=== PATIENT | male | born 1960 | race Caucasian/White ===

== ENCOUNTER 2019-08-01 19:25 | Emergency (ER) | payer MEDICARE ==
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
[2019-08-01 20:24] LABS: ANION GAP 10.6 mEq/L (7-13); CHLORIDE,CL 108 mmol/L (98-107); SODIUM,NA 146 mmol/L (136-145)
[2019-08-02 00:16] VITALS: BP 118/63; PULSE 54
== END 2019-08-02 00:40 | disposition home or self-care (01) ==
LOC: DL.ED 19:25
DX: R00.2 Palpitations (principal); I10 Essential (primary) hypertension; F41.9 Anxiety disorder, unspecified; F32.9 Major depressive disorder, single episode, unspecified; F17.210 Nicotine dependence, cigarettes, uncomplicated; Z88.8 Allergy status to other drugs, medicaments and biological substances; Z88.0 Allergy status to penicillin; Z79.82 Long term (current) use of aspirin; Z79.899 Other long term (current) drug therapy
CPT/HCPCS: 36415; 71045; 80053; 82150; 82553; 83690; 83880; 84484; 85025; 85379; 85610; 93005; 99285-25

== ENCOUNTER 2019-08-24 13:33 | Emergency (ER) | payer MEDICARE, MEDICAID ==
[2019-08-24] MEDS ORDERED: HYDROmorphone 1 MG/ML Syringe IVPUSH ONE ×2 (13:56→14:19)
[2019-08-24] MEDS ORDERED: ceFAZolin 1 GM in Premix Bag 1 BAG IV ONE (14:10)
--- NOTE | 2019-08-24 14:18 | CR ---
EXAMINATION: Ankle 2V Rt SEX: Male AGE: 58 years CLINICAL HISTORY: 58-year-old male CRUSH INJURY right ankle (pinned by forklift). INTERPRETATION: 1. Pronounced soft tissue swelling (STS) with subcutaneous emphysema that extends around the ankle and anterolaterally down the right foot. 2. No sign of underlying fracture or dislocation of the tibiotalar mortise joint, right ankle. 3. Bandage. No other foreign bodies. 4. Heel spurs noted incidentally at the insertion plantar aponeurosis and Achilles tendon of the os calcis.
[2019-08-24 14:26] LABS: ANION GAP 14.7 mEq/L (7-13); CHLORIDE,CL 105 mmol/L (98-107); SODIUM,NA 142 mmol/L (136-145)
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
== END 2019-08-24 14:50 ==
LOC: DL.ED 13:33
DX: S87.81XA Crushing injury of right lower leg, initial encounter (principal); I10 Essential (primary) hypertension; E78.00 Pure hypercholesterolemia, unspecified; F41.9 Anxiety disorder, unspecified; F32.9 Major depressive disorder, single episode, unspecified; Z88.0 Allergy status to penicillin; Z88.8 Allergy status to other drugs, medicaments and biological substances; Z79.82 Long term (current) use of aspirin; Z79.899 Other long term (current) drug therapy; W31.89XA Contact with other specified machinery, initial encounter
CPT/HCPCS: 36415; 73600; 80053; 85025; 96365; 96375; 99285; J0690; J1170; 99284

== ENCOUNTER 2019-11-06 12:46 | Emergency (ER) | payer MEDICARE, MEDICAID ==
[2019-11-06 13:11] VITALS: BP 141/85; PULSE 119
--- NOTE | 2019-11-06 13:22 | EDM.PDOC ---
ED HPI GENERAL MEDICAL PROBLEM - General Chief Complaint: Genitourinary Problem Stated Complaint: UTI Time Seen by Provider: 11/06/19 13:22 Source of Information: Reports: Patient, RN, RN Notes Reviewed History Limitations: Reports: No Limitations - History of Present Illness INITIAL COMMENTS - FREE TEXT/NARRATIVE: Patient presents to ER with complaint of foul-smelling urine, frequency, urgency, burning with urination, as well as fever and chills. Patient states this began on Thursday. 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 Patient states he has a history of enlarged prostate, and has a urinary tract infection approximately 1 time per year. Patient denies any N/V/D, chest pains or shortness of breath. Onset: Gradual - Related Data Allergies Allergy/AdvReac Type Severity Reaction Status Date / Time niacin Allergy Cannot Verified 11/06/19 13:17 Remember Penicillins Allergy Cannot Verified 11/06/19 13:17 Remember modafinil [From Provigil] AdvReac Diarrhea Verified 11/06/19 13:17 Home Meds: Home Meds Amphetamine/Dextroamphetamine [Adderall] 20 mg PO BID 09/04/14 [History] Rosuvastatin [Crestor] 20 mg PO BEDTIME 09/04/14 [History] oxyCODONE HCl/Acetaminophen [Percocet 10-325 MG] 1 tab PO Q6HR PRN 09/04/14 [History] Loperamide [Imodium] 2 mg PO QID PRN 09/12/14 [History] Tamsulosin [Flomax] 0.4 mg PO DAILY 09/12/14 [History] Zolpidem [Ambien] 10 mg PO BEDTIME PRN 09/12/14 [History] Montelukast [Singulair] 10 mg PO DAILY 08/24/19 [History] Acetaminophen 1,000 mg PO Q8HR 09/13/19 [History] Albuterol [Proair HFA] 2 puff INH Q4HR PRN 09/13/19 [History] Budesonide/Formoterol Fumarate [Symbicort 80-4.5 MCG] 2 puff INH BID 09/13/19 [History] Cholecalciferol (Vitamin D3) [Vitamin D3] 2 tab PO DAILY 09/13/19 [History] Colestipol [Colestipol HCl] 1 gm PO DAILY 09/13/19 [History] Cyclobenzaprine [Flexeril] 10 mg PO TID PRN 09/13/19 [History] Fluticasone Propionate [Flonase] 2 spray NASBOTH DAILY 09/13/19 [History] Losartan [Cozaar] 100 mg PO DAILY 09/13/19 [History] Metoprolol Succinate [Toprol XL] 25 mg PO DAILY 09/13/19 [History] Naloxone HCl [Narcan] 0.1 ml GABO ASDIRECTED PRN 09/13/19 [History] Triamcinolone Acetonide [Triamcinolone Acetonide 0.1% Crm] 1 applic TOP BID 09/13/19 [History] Venlafaxine HCl [Venlafaxine ER] 225 mg PO DAILY 09/13/19 [History] Aspirin 325 mg PO WITHBREAKFAST #30 tablet 09/28/19 [Rx] Nortriptyline 10 mg PO DAILY 11/06/19 [History] Past Medical History HEENT History: Reports: None Cardiovascular History: Reports: High Cholesterol, Hypertension Respiratory History: Reports: Asthma, COPD, Sleep Apnea Gastrointestinal History: Reports: Hiatal Hernia, Inflammatory Bowel Disease Other Gastrointestinal History: chrons Genitourinary History: Reports: BPH, Other (See Below) Other Genitourinary History: epididymitis x1 30 years ago. Musculoskeletal History: Reports: Amputation, Back Pain, Chronic Neurological History: Reports: None Psychiatric History: Reports: Anxiety, Depression Endocrine/Metabolic History: Reports: Diabetes, Type II, Other (See Below) Hematologic History: Reports: None, Anemia Immunologic History: Reports: None Oncologic (Cancer) History: Reports: None Dermatologic History: Reports: None - Infectious Disease History Infectious Disease History: Reports: None - Past Surgical History GI Surgical History: Reports: Colonoscopy Musculoskeletal Surgical History: Reports: Amputation Other Musculoskeletal Surgeries/Procedures:: R below knee amputation August 2019 Social & Family History - Family History Family Medical History: Noncontributory - Tobacco Use Smoking Status *Q: Current Every Day Smoker Years of Tobacco use: 36 Packs/Tins Daily: 1 Second Hand Smoke Exposure: Yes - Caffeine Use Caffeine Use: Reports: Coffee, Energy Drinks - Recreational Drug Use Recreational Drug Use: No - Living Situation & Occupation Living situation: Reports: with Spouse ED ROS GENERAL - Review of Systems Review Of Systems: Comprehensive ROS is negative, except as noted in HPI. ED EXAM, RENAL/ - Physical Exam Exam: See Below Exam Limited By: No Limitations General Appearance: Alert, WD/WN, No Apparent Distress Eye Exam: Bilateral Eye: EOMI, Normal Inspection Ears: Normal External Exam, Hearing Grossly Normal Nose: Normal Inspection Throat/Mouth: Normal Inspection, Normal Voice, No Airway Compromise Head: Atraumatic, Normocephalic Neck: Normal Inspection, Supple, Non-Tender, Full Range of Motion Respiratory/Chest: No Respiratory Distress, Lungs Clear, Normal Breath Sounds, No Accessory Muscle Use, Chest Non-Tender Cardiovascular: Normal Peripheral Pulses, Regular Rate, Rhythm, No Edema, No Gallop, No JVD, No Murmur, No Rub GI/Abdominal: Normal Bowel Sounds, Soft, Non-Tender, Hernia (left) (Male) Exam: Deferred Rectal (Males) Exam: Deferred Back Exam: Normal Inspection, Full Range of Motion, NT Extremities: Other (Right BKA) Neurological: Alert, Oriented, CN II-XII Intact, Normal Cognition, No Motor/Sensory Deficits Psychiatric: Normal Affect, Normal Mood Skin Exam: Warm, Dry, Intact, Normal Color, No Rash Lymphatic: No Adenopathy Course - Vital Signs Last Recorded V/S: Last Vital Signs Temp 97.9 F 11/06/19 13:06 Pulse 119 H 11/06/19 13:06 Resp 20 11/06/19 13:06 BP 141/85 H 11/06/19 13:06 Pulse Ox 100 11/06/19 13:06 - Orders/Labs/Meds Orders: Active Orders 24 hr Category Date Time Status CULTURE URINE [RM] Stat Lab 11/06/19 13:28 Received Labs: Laboratory Tests 11/06/19 Range/Units 13:28 Urine Color Dark yellow (YELLOW) Urine Appearance Slightly cloudy (CLEAR) Urine pH 5.5 (5.0-9.0) Ur Specific [place] >= 1.030 (1.005-1.030) Urine Protein 30 H (NEGATIVE) Urine Glucose (UA) Negative (NEGATIVE) Urine Ketones Negative (NEGATIVE) Urine Occult Blood Moderate H (NEGATIVE) Urine Nitrite Negative (NEGATIVE) Urine Bilirubin Negative (NEGATIVE) Urine Urobilinogen 0.2 (0.2-1.0) mg/dL Ur Leukocyte Esterase Trace H (NEGATIVE) Urine RBC 5-10 H /HPF Urine WBC 75-100 H (0-5/HPF) /HPF Ur Epithelial Cells Rare (NOT SEEN) /HPF Urine Bacteria Many H (0-FEW/HPF) /HPF Departure - Departure Time of Disposition: 14:25 Disposition: Home, Self-Care 01 Condition: Fair Clinical Impression: UTI, Urinary tract infectious disease - Discharge Information *PRESCRIPTION DRUG MONITORING PROGRAM REVIEWED*: No *COPY OF PRESCRIPTION DRUG MONITORING REPORT IN PATIENT DON: No Instructions: Urinary Tract Infection, Adult, [id number] Forms: ED Department Discharge Additional Instructions: Rx: Bactrim Drink plenty of water May use Tylenol as directed for pain or fever Follow-up with your primary care provider if no improvement Sepsis Event Note (ED) - Evaluation Sepsis Screening Result: Possible Sepsis Risk - Focused Exam Vital Signs: Vital Signs Temp Pulse Resp BP Pulse Ox 11/06/19 13:06 97.9 F 119 H 20 141/85 H 100 - My Orders Last 24 Hours: My Active Orders 11/06/19 13:28 CULTURE URINE [RM] Stat - Assessment/Plan Last 24 Hours: My Active Orders 11/06/19 13:28 CULTURE URINE [RM] Stat
== END 2019-11-06 14:31 | disposition home or self-care (01) ==
LOC: DL.ED 12:46
DX: N39.0 Urinary tract infection, site not specified (principal); N40.1 Benign prostatic hyperplasia with lower urinary tract symptoms; J44.9 Chronic obstructive pulmonary disease, unspecified; I10 Essential (primary) hypertension; E11.9 Type 2 diabetes mellitus without complications; F17.210 Nicotine dependence, cigarettes, uncomplicated; K46.9 Unspecified abdominal hernia without obstruction or gangrene; Z88.0 Allergy status to penicillin; Z88.3 Allergy status to other anti-infective agents; Z88.8 Allergy status to other drugs, medicaments and biological substances; Z89.511 Acquired absence of right leg below knee; Z79.899 Other long term (current) drug therapy
CPT/HCPCS: 81001; 87086; 87088; 87186; 99283